=== PATIENT | male | born 1940 | race Caucasian/White ===

== ENCOUNTER → 2019-04-17 | Day surgery (SDC) | payer MEDICARE, OTHER ==
[~2019-04-17] MED LIST: FLEC100T PO; HYDR-2145 PO; IV RINGERS SOLUTION,LACTATED 1,000 ML IV SCH; METF500T11 PO; METO25TA2 PO; NIFE60TA90 PO; PIOG30TA41 PO; PROPOFOL 10,000 MCG/ML (20ML) VIAL IV ONE; PROPOFOL 40 ML IV ONE; QUIN40TA16 PO; RIVA15TA PO
[2019-04-17 14:25] VITALS: BP 107/59
--- NOTE | 2019-04-19 15:07 | PATHOLOGY ---
[facility] Accession Number: [id number] . 01 Material submitted: . PART A: cecum - CECUM POLYP PART B: colon - ASCENDING COLON POLYP. Modifiers: ascending PART C: colon - DESCENDING COLON POLYP. Modifiers: descending . 01 Clinical history: . Screen . 02 Diagnosis: A. Colon biopsy, cecal polyp: - Tubular adenoma. . B. Colon biopsies, ascending colon polyp: - Mixed hyperplastic and adenomatous polyp. . C. Colon biopsy, descending colon polyp: - Prominent mucosal fold. . (JPM:betty; 04/19/2019) QMS 04/19/2019 0910 Local . 02 Comment: There is no high grade dysplasia or evidence of malignancy. . 02 Electronically signed: . Nate Do MD, Pathologist NPI- [id number] . 01 Gross description: . A. Received in formalin labeled "Hector, Moose, cecum polyp," is a single segment of guerrero soft tissue measuring 0.3 cm in maximum dimension. The specimen is entirely submitted in cassette A1. . B. Received in formalin labeled "Young, Moose, ascending colon polyp," are 2 segments of guerrero soft tissue measuring 0.6 x 0.3 x 0.2 cm in aggregate dimensions and ranging from 0.2 to 0.4 cm in maximum dimension. The specimen is submitted entirely in cassette B1. . C. Received in formalin labeled "Young, Moose, descending colon polyp," is a single segment of guerrero soft tissue measuring 0.5 cm in maximum dimension. The specimen is entirely submitted in cassette C1. (TSD; 04/18/2019) TOB/TOB 04/18/2019 2302 Local . 02 Pathologist provided ICD-10: D12.0, D12.2 . 02 CPT . 201573, 981077, [id number] Specimen Comment: A courtesy copy of this report has been sent to [phone], [phone] Specimen Comment: [id number] Specimen Comment: Report sent to / DR FARRAR Specimen Comment: A duplicate report has been generated due to demographic updates. Performed at: 01 [facility] [address], [place] [id number] MD Milan Lee MD Phone: [phone] Performed at: 02 [facility] [address], [place] [id number] MD Nate Do MD Phone: [phone]
== END | disposition home or self-care (01) ==
LOC: SURG 13:00
PROVIDERS: ATTEND Internal Medicine Gastroenterology
DX: Z12.11 Encounter for screening for malignant neoplasm of colon (principal); D12.0 Benign neoplasm of cecum; D12.2 Benign neoplasm of ascending colon; K57.30 Diverticulosis of large intestine without perforation or abscess without bleeding; K63.89 Other specified diseases of intestine; G47.30 Sleep apnea, unspecified; E11.9 Type 2 diabetes mellitus without complications; I48.91 Unspecified atrial fibrillation; Z86.010 Personal history of colon polyps; Z88.8 Allergy status to other drugs, medicaments and biological substances; Z79.84 Long term (current) use of oral hypoglycemic drugs; Z79.899 Other long term (current) drug therapy; Z86.73 Personal history of transient ischemic attack (TIA), and cerebral infarction without residual deficits; Z98.890 Other specified postprocedural states; Z90.49 Acquired absence of other specified parts of digestive tract; Z87.891 Personal history of nicotine dependence
CPT/HCPCS: 45380; 82947; J2704; J7120

== ENCOUNTER 2021-06-09 18:13 | Observation (INO) | payer MEDICARE, OTHER ==
[~2021-06-09] VITALS: Ht 172.7 cm; Wt 99.6 kg
[~2021-06-09 18:13] MED LIST changes: -IV RINGERS SOLUTION,LACTATED 1,000 ML IV SCH; +METF-658 PO; -METF500T11 PO; -PROPOFOL 10,000 MCG/ML (20ML) VIAL IV ONE; -PROPOFOL 40 ML IV ONE
[2021-06-09] MEDS ORDERED: IOHEXOL 350 MG/ML 100 ML VIAL. IV ONE (18:45)
[2021-06-09] MEDS ORDERED: CONTRAST GIVEN. MC PRN (18:45)
--- NOTE | 2021-06-09 18:51 | PHYS DOC ---
Past History Past Surgical History: Other Alcohol Use: None General Adult EDM: Chief Complaint: VISION PROBLEM HPI: HPI: Patient is a 81-year-old male who presents to the emergency department with his for complaints of peripheral vision loss in bilateral eyes worse on the left. Patient reports that on he started developing a headache, he reports that Tuesday he felt fatigued but his headache had improved, Tuesday he started noticing that his vision became dark and these symptoms persisted until today. He reports that Tuesday his headache returned. Patient saw Dr. Farrar on Tuesday and he scheduled an MRI for him tomorrow afternoon. He saw an eye doctor today who sent him to the emergency department to rule out a stroke. Patient denies any chest pain, shortness of breath, fevers, speech changes, unilateral weakness, confusion, facial droop. Patient has a history of A. 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 He is on Xarelto. Review of Systems: Review of Systems: Constitutional: negative unless reported in HPI Eyes: negative unless reported in HPI HENT: negative unless reported in HPI Respiratory: negative unless reported in HPI Cardiovascular: negative unless reported in HPI GI: negative unless reported in HPI Musculoskeletal: negative unless reported in HPI Neurologic: negative unless reported in HPI Current Medications: Current Meds: Current Medications Medications (Trade) Dose Ordered Sig/Hanna Start Time Stop Time Status Last Admin Dose Admin Iohexol (Omnipaque 350 Mg/ml) 100 ml 1X ONCE 06/09/21 18:45 06/09/21 18:46 UNV Allergies: Allergies: Allergies Coded Allergies Type Severity Reaction Last Updated Verified apixaban Allergy Unknown 04/17/19 Yes levofloxacin Allergy Unknown 04/16/19 Yes Physical Exam: PE: Constitutional: Well developed, well nourished, no acute distress, non-toxic appearance. [] HENT: Normocephalic, atraumatic, bilateral external ears normal, oropharynx moist, no oral exudates, nose normal. [] Eyes: PERRL, 4 mm bilaterally, left-sided complete hemianopia, EOMI, conjunctiva normal, no discharge. [] Neck: Normal range of motion, no tenderness, supple, no stridor. [] Cardiovascular:Heart rate regular rhythm, no murmur [] Lungs & Thorax: Bilateral breath sounds clear to auscultation [] Abdomen: Bowel sounds normal, soft, no tenderness, no masses, no pulsatile masses. [] Skin: Warm, dry, no erythema, no rash. [] Back: Normal range of motion Extremities: No tenderness, no cyanosis, no clubbing, ROM intact, no edema. [] Neurologic: Alert and oriented X 3, normal motor function, normal sensory function, see NIHSS Psychologic: Affect normal, judgement normal, mood normal. [] Current Patient Data: Labs: Laboratory Tests Test 06/09/21 18:51 White Blood Count 7.3 x10^3/uL Red Blood Count 4.69 x10^6/uL Hemoglobin 14.8 g/dL Hematocrit 43.9 % Mean Corpuscular Volume 94 fL Mean Corpuscular Hemoglobin 32 pg Mean Corpuscular Hemoglobin Concent 34 g/dL Red Cell Distribution Width 13.1 % Platelet Count 265 x10^3/uL Neutrophils (%) (Auto) 60 % Lymphocytes (%) (Auto) 26 % Monocytes (%) (Auto) 10 % Eosinophils (%) (Auto) 2 % Basophils (%) (Auto) 1 % Neutrophils # (Auto) 4.4 x10^3uL Lymphocytes # (Auto) 1.9 x10^3/uL Monocytes # (Auto) 0.7 x10^3/uL Eosinophils # (Auto) 0.1 x10^3/uL Basophils # (Auto) 0.1 x10^3/uL Prothrombin Time 10.9 SEC Prothromb Time International Ratio 1.1 Activated Partial Thromboplast Time 26 SEC Sodium Level 138 mmol/L Potassium Level 4.3 mmol/L Chloride Level 101 mmol/L Carbon Dioxide Level 23 mmol/L Anion Gap 14 Blood Urea Nitrogen 36 mg/dL Creatinine 1.5 mg/dL Estimated GFR (Cockcroft-Gault) 45.1 BUN/Creatinine Ratio 24 Glucose Level 126 mg/dL Calcium Level 9.2 mg/dL Total Bilirubin 0.3 mg/dL Aspartate Amino Transf (AST/SGOT) 18 U/L Alanine Aminotransferase (ALT/SGPT) 24 U/L Alkaline Phosphatase 62 U/L Troponin I High Sensitivity 7 ng/L Total Protein 7.4 g/dL Albumin 3.9 g/dL Albumin/Globulin Ratio 1.1 Current Medications Medications (Trade) Dose Ordered Sig/Hanna Route PRN Reason Start Time Stop Time Status Last Admin Dose Admin Iohexol (Omnipaque 350 Mg/ml) 100 ml 1X ONCE IV 06/09/21 18:45 06/09/21 18:55 DC 06/09/21 19:02 Vital Signs: Vital Signs Date Time Temp Pulse Resp B/P (MAP) Pulse Ox O2 Delivery O2 Flow Rate FiO2 06/09/21 18:25 63 16 174/85 (114) 98 EKG: EKG: [] EKG performed by ER staff at 1820 shows A. fib with a rate of 73 per my read by Dr. Christina Radiology/Procedures: Radiology/Procedures: []PROCEDURE: CT ANGIOGRAPHY HEAD AND NECK Exam: CTA head and neck INDICATION: Left-sided peripheral vision loss TECHNIQUE: Sequential axial images through the head and neck obtained following the administration of 89 mL of Isovue-370 IV contrast. Sagittal and coronal reformatted images were reconstructed from the axial data and reviewed. 3-D reformatted images were reconstructed from the axial data and reviewed. Exposure: One or more of the following in the visualized dose reduction techniques were utilized for this examination: 1. Automated exposure control 2. Adjustment of the MA and/or KV according to patient size 3. Use of iterative of reconstructive technique Comparisons: CT head without contrast same day FINDINGS: CTA NECK: Visualized portions of the thoracic aorta are unremarkable. Standard three- vessel aortic arch anatomy. Right common carotid artery is patent without evidence of stenosis, occlusion or aneurysm. Minimal plaque at the origin of the right internal carotid artery without significant stenosis. Left common carotid artery is patent without evidence of stenosis, occlusion or aneurysm. Minimal plaque at the origin left internal carotid artery without significant stenosis. Right vertebral artery is patent to the basilar confluence without evidence of stenosis, occlusion or aneurysm. Left vertebral artery is patent to the basilar confluence without evidence of stenosis, occlusion or aneurysm. Visualized soft tissues are unremarkable. CTA HEAD: Minimal calcified plaque cavernous segment of the right internal carotid artery without significant stenosis. Right MCA is patent. Right BALA is patent. Minimal calcified plaque cavernous segment left internal carotid artery without significant stenosis. Left MCA is patent. Left BALA is patent. Basilar artery is patent without evidence of stenosis, occlusion or aneurysm. Occlusion of the right MAINTENANCE ASSISTANT at the P1 P2 junction. Left MAINTENANCE ASSISTANT is patent. IMPRESSION: 1. Occlusion of the right MAINTENANCE ASSISTANT at the P1 P2 junction. 2. Minimal plaque at the origin of the internal carotid arteries bilaterally without significant stenosis. 3. Minimal calcified plaque cavernous segment of the left internal carotid artery without significant stenosis. FOR INTERNAL CODING PURPOSES Critical result: Findings discussed with Dr. Christina at 06/09/2021 7:40 PM. RESULT CODE: (C) Electronically signed by: Ronn Otoole MD (06/09/2021 7:43 PM) [facility] DICTATED AND SIGNED BY: RONN OTOOLE MD DATE: 06/09/211935 CC: MARTHA BOWLING APRN; JOHN FARRAR MD ~MTH0 0 PROCEDURE: CT HEAD WO CONTRAST PQRS Compliance Statement: One or more of the following individualized dose reduction techniques were utilized for this examination: 1. Automated exposure control 2. Adjustment of the mA and/or kV according to patient size 3. Use of iterative reconstruction technique CT HEAD WITHOUT CONTRAST History: Reason: Left sided peripheral vision loss, hx of stroke Comparison: MR brain without contrast, May 06, 2014, [facility]. Technique: Axial images are obtained of the head from the skull base through the vertex without IV contrast. Findings: There is patchy hypodensity in the right occipital lobe. No mass-effect, midline shift, extra-axial fluid collection, or hemorrhage is identified. Basilar cisterns are patent. The ventricles and sulci are prominent, consistent with generalized cerebral atrophy. There is periventricular white matter hypoattenuation. This is a nonspecific finding but is commonly due to chronic small vessel ischemic disease. Bone windows demonstrate no acute calvarial abnormality. The visualized paranasal sinuses are clear. Mastoid air cells are well aerated. IMPRESSION: 1. There is hypodensity in the right posterior cerebral artery vascular distribution suggesting acute/subacute infarct. 2. Generalized cerebral atrophy and mild periventricular white matter changes probably due to chronic small vessel ischemic disease. Electronically signed by: Kain Saez MD (06/09/2021 7:26 PM) [facility] DICTATED AND SIGNED BY: KAIN SAEZ MD DATE: 06/09/211919 CC: MARTHA BOWLING APRN; JOHN FARRAR MD ~MTH0 0 Heart Score: C/O Chest Pain: No Risk Factors: Risk Factors: DM, Current or recent (<one month) smoker, HTN, HLP, family history of CAD, obesity. Risk Scores: Score 0 - 3: 2.5% MACE over next 6 weeks - Discharge Home Score 4 - 6: 20.3% MACE over next 6 weeks - Admit for Clinical Observation Score 7 - 10: 72.7% MACE over next 6 weeks - Early Invasive Strategies Course & Med Decision Making: Course & Med Decision Making Pertinent Labs and Imaging studies reviewed. (See chart for details) Patient presents to the emergency department today for peripheral vision loss worse on the left eye. The symptoms started on Tuesday. He has an appointment for an MRI tomorrow afternoon. Work-up in the ER consisted of blood work including PT and PTT as patient is on Xarelto, EKG, CT scan of head and CT angio of head and neck. Patient was BUN was 36, creatinine 1.5, unknown if patient has a history of chronic kidney disease and no previous labs to compare to. Patient's blood sugar was 126. PT 10.9, INR 1.1, PTT 26. Negative troponin. Patient CT scan shows a right posterior cerebral artery infarct. CT angio of head and neck ordered which showed occlusion of the right MAINTENANCE ASSISTANT P1 P2 junction, minimal plaque of the internal carotid arteries bilaterally without significant stenosis and mild calcified plaque Segment of the left internal carotid artery. Supervising physician consulted. I discussed these findings with Dr. Shaffer who believe that patient did not need to be transferred to [facility] for an MRI. I discussed these findings with Dr. Eckert and a consult was placed. I discussed patient's case with Dr. Andrade who agreed to admit the patient at this facility for acute CVA. I discussed patient's findings with him and recommended treatment plan he is agreeable at this time. ER bridge orders placed this time 2009. Serafin Disclaimer: Serafin Disclaimer: This electronic medical record was generated, in whole or in part, using a voice recognition dictation system. NIH Stroke Scale: NIH Stroke Scale Response (Comments) Value Level of Consciousness: 0 Alert/Responsive 0 LOC Questions: 0 Answers both correctly 0 LOC Commands: 0 Performs both tasks 0 Best Gaze: 0 Normal 0 Visual: 2 Complete hemianopia 2 Facial Palsy: 0 Normal, symmetrical 0 Motor - Left Arm 0 No drift 0 Motor - Right Arm 0 No drift 0 Motor - Left Leg 0 No drift 0 Motor: Right Leg 0 No drift 0 Limb Ataxia: 0 Absent 0 Best Language: 0 Normal 0 Dysathria: 0 Normal 0 Extinction and Inattention: 0 Normal 0 Total 2 Departure Departure: Impression: Primary Impression: CVA (cerebral vascular accident) Qualified Codes: I63.531 - Cerebral infarction due to unspecified occlusion or stenosis of right posterior cerebral artery Disposition: ADMITTED INPATIENT Admitting Physician: Danita Parsons Condition: STABLE Referrals: JOHN FARRAR MD (PCP) MARTHA BOWLING APRN Jun 09, 2021 18:51
[2021-06-09 19:24] LABS: CALCIUM 9.2 mg/dL (8.5-10.1); CREATININE 1.5 mg/dL (0.7-1.3); GFR 45.1; POTASSIUM 4.3 mmol/L (3.5-5.1)
[2021-06-09 19:28] LABS: BASO # 0.1 x10^3/uL (0.0-0.2); BASO % 1 % (0-3); EOS # 0.1 x10^3/uL (0.0-0.7); EOS % 2 % (0-3); HEMATOCRIT 43.9 % (39.0-53.0); HEMOGLOBIN 14.8 g/dL (13.0-17.5); LYMPH # 1.9 x10^3/uL (1.0-4.8); LYMPH % 26 % (24-48); MEAN CORPUSCULAR HEMOGLOBIN 32 pg (25-35); MEAN CORPUSCULAR HGB CONC 34 g/dL (31-37); MEAN CORPUSCULAR VOLUME 94 fL (79-100); MONO # 0.7 x10^3/uL (0.0-1.1); MONO % 10 % (0-9); NEUT # 4.4 x10^3uL (1.8-7.7); NEUT % 60 % (31-73); PLATELET COUNT 265 x10^3/uL (140-400); RED BLOOD COUNT 4.69 x10^6/uL (4.30-5.70); RED CELL DISTRIBUTION WIDTH 13.1 % (11.5-14.5); WHITE BLOOD COUNT 7.3 x10^3/uL (4.0-11.0)
--- NOTE | 2021-06-09 19:29 | RAD ---
PQRS Compliance Statement: One or more of the following individualized dose reduction techniques were utilized for this examinat ion: 1. Automated exposure control 2. Adjustment of the mA and/or kV according to patient size 3. Use of iterative reconstruction technique CT HEAD WITHOUT CONTRAST History: Reason: Left sided peripheral vision loss, hx of stroke Comparison: MR brain without contrast, May 06, 2014, [facility]. Technique: Axial images are obtained of the head from the skull base through the vertex without IV co ntrast. Findings: There is patchy hypodensity in the right occipital lobe. No mass-effect, midline shift, extra-axial fluid collection, or hemorrhage is identified. Basilar ci sterns are patent. The ventricles and sulci are prominent, consistent with generalized cerebral atrophy. There is perive ntricular white matter hypoattenuation. This is a nonspecific finding but is commonly due to chronic small vessel ischemic disease. Bone windows demonstrate no acute calvarial abnormality. The visualized paranasal sinuses are clear. Mastoid air cells are well aerated. IMPRESSION: 1. There is hypodensity in the right posterior cerebral artery vascular distribution suggesting acut e/subacute infarct. 2. Generalized cerebral atrophy and mild periventricular white matter changes probably due to chroni c small vessel ischemic disease. Electronically signed by: Kain Saez MD (06/09/2021 7:26 PM) [facility]
[2021-06-09 19:30] LABS: ALBUMIN 3.9 g/dL (3.4-5.0); ALBUMIN/GLOBULIN RATIO 1.1 (1.0-1.7); TOTAL BILIRUBIN 0.3 mg/dL (0.2-1.0); TOTAL PROTEIN 7.4 g/dL (6.4-8.2)
--- NOTE | 2021-06-09 19:45 | RAD ---
Exam: CTA head and neck INDICATION: Left-sided peripheral vision loss TECHNIQUE: Sequential axial images through the head and neck obtained following the administration of 89 mL of Isovue-370 IV contrast. Sagittal and coronal reformatted images were reconstructed from the axial data and reviewed. 3-D reformatted images were reconstructed from the axial data and reviewed. Exposure: One or more of the following in the visualized dose reduction techniques were utilized for this examination: 1. Automated exposure control 2. Adjustment of the MA and/or KV according to patient size 3. Use of iterative of reconstructive technique Comparisons: CT head without contrast same day FINDINGS: CTA NECK: Visualized portions of the thoracic aorta are unremarkable. Standard three-vessel aortic arch anatomy . Right common carotid artery is patent without evidence of stenosis, occlusion or aneurysm. Minimal pl aque at the origin of the right internal carotid artery without significant stenosis. Left common carotid artery is patent without evidence of stenosis, occlusion or aneurysm. Minimal halie que at the origin left internal carotid artery without significant stenosis. Right vertebral artery is patent to the basilar confluence without evidence of stenosis, occlusion or aneurysm. Left vertebral artery is patent to the basilar confluence without evidence of stenosis, occlusion or aneurysm. Visualized soft tissues are unremarkable. CTA HEAD: Minimal calcified plaque cavernous segment of the right internal carotid artery without significant s tenosis. Right MCA is patent. Right BALA is patent. Minimal calcified plaque cavernous segment left internal carotid artery without significant stenosis. Left MCA is patent. Left BALA is patent. Basilar artery is patent without evidence of stenosis, occlusion or aneurysm. Occlusion of the right MANNEQUIN WIG MAKER at the P1 P2 junction. Left MANNEQUIN WIG MAKER is patent. IMPRESSION: 1. Occlusion of the right MANNEQUIN WIG MAKER at the P1 P2 junction. 2. Minimal plaque at the origin of the internal carotid arteries bilaterally without significant che nosis. 3. Minimal calcified plaque cavernous segment of the left internal carotid artery without significan t stenosis. FOR INTERNAL CODING PURPOSES Critical result: Findings discussed with Dr. Christina at 06/09/2021 7:40 PM. RESULT CODE: (C) Electronically signed by: Ronn Good MD (06/09/2021 7:43 PM) [facility]
[2021-06-09 21:49] VITALS: BP 143/80
[2021-06-10 06:23] VITALS: BP 116/67
[2021-06-10 06:32] LABS: BASO # 0.1 x10^3/uL (0.0-0.2); BASO % 1 % (0-3); EOS # 0.2 x10^3/uL (0.0-0.7); EOS % 3 % (0-3); HEMATOCRIT 41.4 % (39.0-53.0); HEMOGLOBIN 13.9 g/dL (13.0-17.5); LYMPH # 2.4 x10^3/uL (1.0-4.8); LYMPH % 32 % (24-48); MEAN CORPUSCULAR HEMOGLOBIN 32 pg (25-35); MEAN CORPUSCULAR HGB CONC 34 g/dL (31-37); MEAN CORPUSCULAR VOLUME 95 fL (79-100); MONO # 0.7 x10^3/uL (0.0-1.1); MONO % 9 % (0-9); NEUT # 4.1 x10^3uL (1.8-7.7); NEUT % 55 % (31-73); PLATELET COUNT 258 x10^3/uL (140-400); RED BLOOD COUNT 4.34 x10^6/uL (4.30-5.70); RED CELL DISTRIBUTION WIDTH 12.9 % (11.5-14.5); WHITE BLOOD COUNT 7.4 x10^3/uL (4.0-11.0)
--- NOTE | 2021-06-10 06:45 | EKG ---
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
[2021-06-10 06:47] LABS: ALBUMIN 3.4 g/dL (3.4-5.0); ALBUMIN/GLOBULIN RATIO 0.9 (1.0-1.7); CREATININE 1.4 mg/dL (0.7-1.3); GFR 48.9; POTASSIUM 4.1 mmol/L (3.5-5.1); TOTAL BILIRUBIN 0.4 mg/dL (0.2-1.0)
[2021-06-10] MEDS ORDERED: FLU VACC QUAD 21-22 (6MOS+) PF 0.5 ML SYRINGE. VAX IM ONE (07:45)
[2021-06-10] MEDS ORDERED: Influenza vaccine per PROTOCOL. MC PRN (07:45)
--- NOTE | 2021-06-10 10:41 | HP ---
DATE OF SERVICE: 06/10/2021 ADMIT DATE: 06/09/2021 ATTENDING PHYSICIAN: Dr. Odonnell. CHIEF COMPLAINT: Visual changes. HISTORY OF PRESENT ILLNESS: The patient is a very pleasant 81-year-old gentleman, very active, alert. He presented to the ED with peripheral vision loss. He is on blood thinners, Xarelto daily for paroxysmal atrial fibrillation. The workup was limited in our ED. He had a CT of the head, which showed no acute strokes. We continued his Xarelto dose. He was admitted then to the hospital for neurologic evaluation and further monitoring. By the time I saw him, the next day, he was doing better, the visual changes subsided and he had no further symptoms. PAST MEDICAL HISTORY: Significant for paroxysmal atrial fibrillation. He has had previous cardiac catheterization. He has hypertension and diabetes. CURRENT MEDICATIONS: Include flecainide 100 mg twice a day, hydrochlorothiazide, metformin, metoprolol, nifedipine, Actos, quinapril and Xarelto. ALLERGIES: HE HAS ALLERGIES TO APIXABAN AND LEVAQUIN, EXACT REACTIONS UNCLEAR. He sees Dr. Brown through Cardiology Service. SOCIAL HISTORY: He is a nonsmoker and nondrinker. FAMILY HISTORY: Noncontributory. REVIEW OF SYSTEMS: Significant for the visual losses. He had some headaches that have subsided. He went to an space studies faculty member who sent him to the Emergency Room to rule out a stroke. He denied any chest pain, shortness of breath. COVID exposure. He has had previous atrial fibrillation with an ablation and an old CVA in 2018 with no residual deficits. PHYSICAL EXAMINATION: GENERAL: When I saw him, this is a pleasant middle-aged gentleman. VITAL SIGNS: Initial vital signs showed a blood pressure of 116/67, pulse is 57 and regular. He was afebrile, oxygen saturation 96% on room air. HEENT: Head is without trauma. Pupils are reactive. Sclerae nonicteric. Oropharynx clear. NECK: Supple, no bruits. LUNGS: Clear. CARDIOVASCULAR: Showed regular heart tones. ABDOMEN: Soft. EXTREMITIES: Without edema. NEUROLOGIC: Focally intact. Speech is fluent. Gas Maker Helper symmetrical. PERTINENT LABORATORY STUDIES: The initial CT of the head showed hypodensity in the right posterior cerebral artery vascular distribution suggesting subacute infarct, generalized cerebral atrophy and mild periventricular changes due to chronic small vessel changes. PERTINENT LABORATORY STUDIES: Hemoglobin 14.8 g, white count 7300, creatinine is 1.4 mg percent. Electrolytes within normal range. Nonfasting blood sugar 128 mg/dL. ASSESSMENT: 1. A 81-year-old gentleman with occipital lobe stroke. Whether this is transient ischemic attacks or completed stroke remains to be seen. He is better by the time I saw him the next day. 2. Old cerebrovascular accident with minimal residual in 2018. 3. Paroxysmal atrial fibrillation with previous ablation. 4. Chronic anticoagulation. 5. Type 2 diabetes. 6. Essential hypertension, currently normotensive. PLAN: 1. Observation status. 2. Telemetry monitoring. 3. Formal neurology consultation in the morning. 4. Continue Xarelto and home meds. ALICE/BRITTANY/PRATIK DR: ALICE/marjan TID: [id number] CC: JOHN FARRAR
--- NOTE | 2021-06-10 10:47 | DS ---
DATE OF DISCHARGE: 06/10/2021 ATTENDING PHYSICIAN: Dr. Odonnell. FINAL DISCHARGE DIAGNOSES: 1. A 81-year-old gentleman with a transient ischemic attack/stroke right posterior occipital lobe. 2. History of atrial fibrillation. 3. Type 2 diabetes mellitus. 4. Essential hypertension. 5. Old cerebrovascular accident 2018 with minimal residual deficits. HISTORY AND PHYSICAL: The patient is a 81-year-old gentleman admitted through the ED with a new onset of headaches and some peripheral vision loss. The workup here in the ED showed evidence of a subacute hypodensity in the right posterior cerebral artery vascular distribution suggesting a subacute infarct, generalized atrophy and periventricular chronic small vessel ischemic changes are identified. PERTINENT LABORATORY AND X-RAY STUDIES: His blood work, CBC, chemistry panel, blood sugars are unremarkable. COURSE IN HOSPITAL: The patient was admitted. He has symptoms of occipital lobe stroke. He got better. We continued his home meds, Xarelto. Formal consultation with Dr. Eckert of neurology services. His recommendation is on the chart. By the time I saw him the next day, vital signs were stable. Vision had improved and he had symptoms of TIA, which were resolving. He is scheduled to have an MRI this afternoon at [facility] at 3:30. He will make that appointment as an outpatient. He was stable for discharge. There were no changes in the home meds. He will continue his flecainide b.i.d., hydrochlorothiazide daily, metformin, metoprolol, nifedipine, Actos, quinapril and Xarelto doses unchanged. Once again, he was discharged from our hospital in stable condition with explicit drug and followup care with Dr. Eckert, MRI this afternoon, and also with his PCP and agriculture engineer. [place] DR: Katelin TID: [id number] CC: Nemesio Mendoza
--- NOTE | 2021-06-10 20:13 | CONS ---
DATE OF CONSULTATION: 06/10/2021 NEUROLOGY CONSULTATION REFERRING PHYSICIAN: Dr. Odonnell. REASON FOR CONSULTATION: Rule out stroke. HISTORY OF PRESENT ILLNESS: This is a 81-year-old right-handed male who was admitted through Emergency Room on 06/09/2020 on account of blurred vision of both eyes began several days ago. The patient developed frontal headaches and he related that to sinus disease. In the Emergency Room, the patient had extensive workup including head CT scan, which did not show any significant central nervous system pathology or intracranial process. Currently he denies chest pain, shortness of breath or palpitation. However, on occasions, he would develop exertional dyspnea. 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 No official report is available at this time. The patient denies any weakness or paresthesia of the upper or lower extremities. PAST MEDICAL HISTORY: Significant for paroxysmal atrial fibrillation diagnosed several years ago, required ablation performed at [facility]. History of diabetes mellitus and hypertension. SOCIAL HISTORY: The patient is . He denies smoking, alcohol drinking or illicit drug use. FAMILY HISTORY: Noncontributory. CURRENT HOME MEDICATIONS: Include flecainide 100 mg b.i.d., hydrochlorothiazide 25 mg daily, metformin 500 mg p.o. daily, metoprolol XL 25 mg p.o. daily, nifedipine 60 mg p.o. daily, Actos 30 mg p.o. daily, quinapril HCL 40 mg p.o. daily and Xarelto 15 mg p.o. daily. ALLERGIES: APIXABAN AND LEVOFLOXACIN. REVIEW OF SYSTEMS: A 10-point review of system was performed as mentioned above in history of present illness, otherwise unremarkable. PHYSICAL EXAMINATION: GENERAL: Obese male not in any acute distress. He weighs 99.6 kilos. VITAL SIGNS: Blood pressure 116/67, respiratory rate 18, pulse is 57 and regular, oxygen saturation 96% on room air and temperature is 98.2. HEENT: Normocephalic, atraumatic, otherwise unremarkable. NECK: Supple, negative for carotid bruit, lymphadenopathy or thyromegaly. LUNGS: Clear to A and P. CARDIOVASCULAR: Regular rate and rhythm, normal S1, S2. There is no S3, S4 or murmur. ABDOMEN: Soft. Bowel sounds positive. EXTREMITIES: Negative for cyanosis, clubbing or pedal edema. NEUROLOGIC: Mental status: The patient is alert and oriented x 3. The speech is fluent. There is no language dysfunction. Memory, judgment and abstracting thinking are normal. The patient denies hallucination or delusion. Cranial nerves: Visual fuentes are consistent with left inferior quadranopsia, otherwise unremarkable. The pupils are reactive to light and accommodation. The extraocular movements are intact. There is no nystagmus. There is no facial motor or sensory deficits. Hearing is intact bilaterally. The palate is elevated symmetrically. Sternocleidomastoid muscles are powerful bilaterally. The patient shrugs his shoulders symmetrically, protrudes his tongue in the midline without fasciculation or atrophy. Motor exam: No focal muscle bulk wasting. The tone is normal. The strength is 5/5 throughout. Sensory examination revealed normal pinprick, light touch, vibratory and position senses. Deep tendon reflexes were symmetric and hypoactive with absent Achilles responses. Gait and coordination were normal. LABORATORY DATA: CBC revealed blood cells of 7.4 thousand, hemoglobin 13.9, hematocrit 41.4, platelet count 258,000. Chemistry revealed a sodium of 138, potassium 4.1, chloride 103, CO2 of 23, BUN 32, creatinine 1.4, glucose 114. Liver enzymes are normal. Troponin high sensitivity level is 7. Coagulation is normal. Rapid COVID-19 test is negative. DIAGNOSTIC DATA: 1. Nonenhanced head CT scan revealed: A. A hypodensity in the right posterior cerebral artery vascular distribution suggestive of acute or subacute infarct. B. Generalized cerebral atrophy with periventricular white matter changes consistent with chronic small vessel ischemic changes. 2. A CT angio of the neck and head revealed: A. 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 B. Bilateral internal carotid artery plaques at the origin without significant stenosis as well as the calcified plaque at cavernous segments of the left internal carotid artery without significant stenosis. IMPRESSION: 1. 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 2. History of multiple risks for stroke including hypertension, diabetes mellitus, and paroxysmal atrial fibrillations. RECOMMENDATIONS: 1. Continue with current conservative management with Xarelto. 2. The patient has been scheduled for brain MRI today afternoon. 3. Followup visit in Neurology Clinic with Dr. Eckert after 1 week from discharge. 4. Continue with current medical care initiated by Dr. Odonnell. KEANU/CHAR DR: KEANU/marjan TID: [id number]
== END 2021-06-10 10:54 | disposition home or self-care (01) ==
LOC: ER 18:13 → ER HOLD 20:16 → INTOOBSV 20:16 → 1 SOUTH 21:41
PROVIDERS: ADMIT Internal Medicine; ATTEND Internal Medicine
DX: G45.9 Transient cerebral ischemic attack, unspecified (principal); Z20.822 Contact with and (suspected) exposure to COVID-19; I63.531 Cerebral infarction due to unspecified occlusion or stenosis of right posterior cerebral artery; I10 Essential (primary) hypertension; I48.0 Paroxysmal atrial fibrillation; E11.9 Type 2 diabetes mellitus without complications; R29.700 NIHSS score 0; H54.7 Unspecified visual loss; Z86.73 Personal history of transient ischemic attack (TIA), and cerebral infarction without residual deficits; Z79.01 Long term (current) use of anticoagulants; Z23 Encounter for immunization; Z71.85 Encounter for immunization safety counseling
CPT/HCPCS: 36415; 70450; 70496; 70498; 80053; 82947; 84484; 85025; 85610; 85730; 87426; 90471; 90686; 93005; 99285; G0378; Q9967; U0003; G0379